=== PATIENT | female | born 1950 | race Caucasian/White ===

== ENCOUNTER → 2020-03-30 | Outpatient (CLI) | payer MEDICARE, OTHER ==
[2020-03-31 15:09] LABS: HPV 16 Negative (Negative); HPV 18 Negative (Negative); HPV OTHER HR TYPES Negative (Negative)
== END | disposition home or self-care (01) ==
LOC: LAB 11:53 → LAB SHORT 11:53
PROVIDERS: Obstetrics & Gynecology
DX: Z01.419 Encounter for gynecological examination (general) (routine) without abnormal findings (principal)
CPT/HCPCS: 87624; G0123

== ENCOUNTER → 2021-10-21 | Outpatient (CLI) | payer MEDICARE, OTHER ==
[2021-10-22 09:55] LABS: Candida species (DNA Probe) Negative (NEGATIVE); G. vaginalis (DNA Probe) Negative (NEGATIVE); T. vaginalis (DNA Probe) Negative (NEGATIVE)
== END | disposition home or self-care (01) ==
LOC: LAB 17:35 → LAB SHORT 17:35
PROVIDERS: Family Medicine
DX: N95.2 Postmenopausal atrophic vaginitis (principal); R30.9 Painful micturition, unspecified
CPT/HCPCS: 87086; 87480; 87510; 87660

== ENCOUNTER 2022-11-22 09:28 | Day surgery (SDC) | payer MEDICARE, OTHER ==
[~2022-11-22] VITALS: Ht 157.5 cm; Wt 85.5 kg
[2022-11-22] MEDS ORDERED: LISI20 PO (10:09)
[2022-11-22] MEDS ORDERED: CHLO25B PO (10:09)
[2022-11-22] MEDS ORDERED: ATEN50 PO (10:09)
[2022-11-22] MEDS ORDERED: GABA300 PO (10:12)
[2022-11-22] MEDS ORDERED: ATOR40TA PO (10:12)
[2022-11-22] MEDS ORDERED: AMLO10 PO (10:13)
[2022-11-22] MEDS ORDERED: CATAPRES0.2 M1 PO (10:13)
[2022-11-22] MEDS ORDERED: LIDO700A20 TOP (10:13)
== END 2022-11-22 12:12 | disposition home or self-care (01) ==
LOC: ORSCSDS 09:28
PROVIDERS: Orthopaedic Surgery
PROC: 0LN70ZZ Release Right Hand Tendon, Open Approach (ICD-10-PCS; principal; 2022-11-22 11:00)
DX: M65.311 Trigger thumb, right thumb (principal); M65.351 Trigger finger, right little finger; M79.641 Pain in right hand; I10 Essential (primary) hypertension; Z87.891 Personal history of nicotine dependence; E66.9 Obesity, unspecified; Z68.34 Body mass index [BMI] 34.0-34.9, adult; Z79.899 Other long term (current) drug therapy
CPT/HCPCS: J2250; J7120

== ENCOUNTER 2025-01-07 06:08 | Day surgery (SDC) | payer MEDICARE, OTHER ==
[~2025-01-07] VITALS: Ht 152.4 cm; Wt 78.9 kg
[~2025-01-07 06:08] MED LIST: AMLO10 PO; ATEN50 PO; ATOR40TA PO; CATAPRES0.2 M1 PO; CHLO25B PO; GABA300 PO; LIDO700A20 TOP; LISI20 PO
[2025-01-07] MEDS ORDERED: CeFAZolin Sodium 2,000 MG VIAL ONE (06:38)
[2025-01-07] MEDS ORDERED: Lactated Ringer's 1,000 ML IV ONE ×3 (06:39→08:45)
[2025-01-07] MEDS ORDERED: EPINEPhrine HCl 1 MG/ML 1ML Amp ONE (06:57)
[2025-01-07] MEDS ORDERED: Rocuronium Bromide 10 MG/ML 5ML Injection IV ONE (07:03)
[2025-01-07] MEDS ORDERED: Midazolam HCl 1MG / ML 2ML Vial ONE (07:03)
[2025-01-07] MEDS ORDERED: propofoL 20 ML IV ONE (07:03)
[2025-01-07] MEDS ORDERED: ASPIRIN-DIPYRIDAMOLE (07:15)
--- NOTE | 2025-01-07 07:33 | NUR ---
01/07/25 0733 Tracie Coello TIMEOUT FOR BLOCK: [address] CHRISTOPHER: 727 BLOCK COMPLETED: 729
[2025-01-07] MEDS ORDERED: Ondansetron HCl 2 MG / ML 2ML Vial ONE (07:50)
[2025-01-07] MEDS ORDERED: Phenylephrine HCl 100 MCG/ML-NS 10MLSYR (1MG/10ML) ONE ×2 (07:50→08:02)
[2025-01-07] MEDS ORDERED: Dexamethasone Sod Phos 10 MG/ML 1ML VIAL ONE (07:50)
[2025-01-07] MEDS ORDERED: EPINEPhrine HCl 1 MG/ML 1ML Amp XX ONE ×2 (08:02→08:51)
[2025-01-07] MEDS ORDERED: Sugammadex Sodium 200 MG/2ML SDV (100 MG/ML) ONE (08:06)
[2025-01-07 09:20] VITALS: BP 130/63
--- NOTE | 2025-01-07 10:23 | NUR ---
01/07/25 Brina3 Saurabh Ortiz PT DENIES PAIN, STATES NUMBNESS TO RIGHT ARM/SURGICAL SITE. BARRY PRESENT FOR DISCHARGE INSTRUCTIONS AND DEMONSTRATION OF SLING AND INSPIROMETER. TOLERATING FOOD AND FLUIDS, VOIDED URINE PRIOR TO DISCHARGE.
== END 2025-01-07 10:24 | disposition home or self-care (01) ==
LOC: ORSCSDS 06:08
PROVIDERS: Orthopaedic Surgery
PROC: 0RNJ4ZZ Release Right Shoulder Joint, Percutaneous Endoscopic Approach (ICD-10-PCS; principal; 2025-01-07 07:30)
PROC: 0LM14ZZ Reattachment of Right Shoulder Tendon, Percutaneous Endoscopic Approach (ICD-10-PCS; principal; 2025-01-07 07:30)
DX: M75.121 Complete rotator cuff tear or rupture of right shoulder, not specified as traumatic (principal); M71.9 Bursopathy, unspecified; I10 Essential (primary) hypertension; E78.5 Hyperlipidemia, unspecified; Z86.73 Personal history of transient ischemic attack (TIA), and cerebral infarction without residual deficits; Z87.891 Personal history of nicotine dependence; Z85.3 Personal history of malignant neoplasm of breast; Z79.899 Other long term (current) drug therapy
CPT/HCPCS: C1713; J0171; J0690; J1100; J2250; J2371; J2405; J2704; J7120